=== PATIENT | female | born 1955 | race Caucasian/White ===

== ENCOUNTER → 2024-02-19 08:08 | Outpatient (CLI) | payer MEDICARE, OTHER, SELFPAY ==
[2024-02-19 09:00] LABS: Add Manual Diff / Slide Review NO; Basophils Absolute Auto 100 /uL (0-100); Basophils Percent Auto 0.9 % (0-2); Eosinophils Absolute Auto 500 /uL (0-450); Eosinophils Percent Auto 6.4 % (2-4); Hematocrit 38.9 % (36-46); Hemoglobin 13.2 g/dL (12.0-16.0); Lymphocytes Absolute Auto 1600 /uL (1100-4500); Lymphocytes Percent Auto 21.4 % (25-40); Mean Corpuscular Hemoglobin 29.6 PG (26-34); Mean Corpuscular Volume 87.1 fL (80-100); Monocytes Absolute Auto 500 /uL (0-900); Monocytes Percent Auto 6.1 % (3-14); Neutrophils Absolute Auto 4800 /uL (1500-7000); Neutrophils Percent Auto 65.2 % (50-75); Platelet Count 284 X10^3/uL (150-400); Red Blood Cell Count 4.47 X10^6/uL (4.0-5.2); Red Cell Distribution Width 13.2 % (11.6-14.8); White Blood Cell Count 7.4 X10^3/uL (4.5-11.0)
[2024-02-19 09:27] LABS: Hemoglobin A1C% w Est Avg Glu 5.7 % (4.0-6.0)
[2024-02-19 09:37] LABS: Alanine Aminotransferase 43 IU/L (<35); Albumin 4.4 g/dL (3.5-5.0); Albumin Globulin Ratio 1.6 (1.0-2.8); Alkaline Phosphatase 66 U/L (38-126); Aspartate Aminotransferase 36 IU/L (14-36); BUN Creatinine Ratio 27.9 (6-22); Bilirubin Total 0.8 mg/dL (0.2-1.3); Blood Urea Nitrogen 19 mg/dL (7-17); Calcium 9.1 mg/dL (8.4-10.2); Carbon Dioxide 29 mmol/L (22-32); Chloride 105 mmol/L (98-107); Cholesterol 199 mg/dL (140-199); Estimated Glomerular Filt Rate > 60 mL/min (>60); Globulin 2.7 g/dL (1.7-4.1); Glucose 124 mg/dL (80-110); HDL Cholesterol 65 mg/dL (40-60); HEMOLYSIS < 15 (0-50); LDL Cholesterol Calculated 115 mg/dL (<100); Potassium 4.6 mmol/L (3.4-5.1); Sodium 140 mmol/L (137-145); Total Protein 7.1 g/dL (6.3-8.2); Triglycerides 94 mg/dL (35-150)
== END ==
PROVIDERS: PCP Family Medicine; Referring Provider Family Medicine; Visit Provider Family Medicine
DX: Z13.220 Encounter for screening for lipoid disorders (principal); I10 Essential (primary) hypertension; R73.03 Prediabetes
CPT/HCPCS: 36415; 80053; 80061; 83036; 85025

== ENCOUNTER → 2024-03-05 15:02 | Outpatient (CLI) | payer MEDICARE, SELFPAY ==
--- NOTE | 2024-03-05 15:04 | DI.MG.S_ITS ---
BILATERAL DIGITAL SCREENING MAMMOGRAM 3D/2D WITH CAD: 03/05/2024 CLINICAL: Routine screening. Family history of breast cancer. No prior exams were available for comparison. There are scattered areas of fibroglandular density in both breasts (category b / 25%-50% glandular tissue). Current study was also evaluated with a Computer Aided Detection (CAD) system. No significant masses, calcifications, or other findings are seen in either breast. IMPRESSION: NEGATIVE There is no mammographic evidence of malignancy. A 1 year screening mammogram is recommended. Based on the Tyrer Cuzick model (a risk assessment model) the patient's lifetime risk is 12.0% and her 10 year risk is 6.4%. According to the ACR, ACS, and NCCN guidelines, an annual breast MRI exam along with mammogram is recommended if the patient's lifetime risk is 20% or greater. This exam was interpreted at Station ID: [id number]. NOTE: For mammograms, a report in lay terms will be sent to the patient. Approximately 15% of breast malignancies will not be visualized mammographically. In the management of a palpable breast mass, a negative mammogram must not discourage biopsy of a clinically suspicious lesion. Electronically Signed By: Clover Vergara M.D., Ph.D. willie/austin:03/09/2024 15:46:44 letter sent: Normal Exam ACR BI-RADS Category 1: Negative [id number]
--- NOTE | 2024-03-05 15:04 | DI.RAD.S_ITS ---
PROCEDURE: XR DEXA AXIAL SKELETON INDICATIONS: OSTEOPOROSIS SCREENING/ROUTINE SCREENING COMPARISON: None. FINDINGS: Lumbar Spine: Bone mineral density 1.198 g/cm2, T score 1.6. Left Hip: Bone mineral density 1.088 g/cm2, T score 1.2. Left Femoral Neck: Bone mineral density 0.925 g/cm2, T score 0.7. Right Hip: Bone mineral density 1.02 g/cm2, T score 0.6. Right Femoral Neck: Bone mineral density 0.902 g/cm2, T score 0.5. Fracture Risk Calculation (when applicable): 10-year fracture risk of a major osteoporotic fracture 6.3% and of a hip fracture 0.2%. (T score greater or equal to -1.0 to: NORMAL) (T score from -1.1 to -2.4: OSTEOPENIA) (T score less than or equal to -2.5: OSTEOPOROSIS) IMPRESSION: Normal bone mineral density Follow-up guidelines as follows: Osteoporosis: Consider a repeat DEXA and Vertebral Fracture Assessment (VFA) exam in 2 years or sooner if medically necessary, to reassess this patient's status. Osteopenia: Consider a repeat DEXA in 2-3 years to reassess this patient's status, or if there is a new clinical indication. Normal: Consider a repeat DEXA in 5 years or sooner, or if there is a new clinical indication. All treatment decisions require clinical judgment and consideration of individual patient factors, including patient preferences, comorbidities, previous drug use, risk factors not captured in the FRAX model (e.g., frailty, falls, vitamin D deficiency, increased bone turnover, interval significant decline in bone density ) and possible under- or over-estimation of fracture risk by FRAX. In addition, the NOF Guide recommends that FDA-approved medical therapies be considered in postmenopausal women and men age >= 50 years with a: * Hip or vertebral (clinical or morphometric) fracture * T-score of <=-2.5 at the spine or hip * Ten-year fracture probability by FRAX of >= 3% for hip fracture or >=20% for major osteoporotic fracture. People with diagnosed cases of osteoporosis or at high risk for fracture should have regular bone mineral density tests. For patients eligible for Medicare, routine testing is allowed once every 2 years. The testing frequency can be increased to one year for patients who have rapidly progressing disease, those who are receiving or discontinuing medical therapy to restore bone mass, or have additional risk factors. Dictated by: Carlos Enrique Lang M.D. on 03/05/2024 at 17:44 Approved by: Carlos Enrique Lang M.D. on 03/05/2024 at 17:46
== END ==
PROVIDERS: PCP Family Medicine; Referring Provider Family Medicine; Visit Provider Family Medicine
DX: Z80.3 Family history of malignant neoplasm of breast (principal); Z12.31 Encounter for screening mammogram for malignant neoplasm of breast; R92.323 Mammographic fibroglandular density, bilateral breasts; Z78.0 Asymptomatic menopausal state
CPT/HCPCS: 77063; 77067; 77080

== ENCOUNTER 2024-10-06 21:51 | Emergency (ER) | payer MEDICARE, SELFPAY ==
[2024-10-06 21:55] VITALS: BP 136/83; PULSE 80; RESP 16; TEMP 37.1; O2SAT 97; BMI 27.5
[2024-10-06] MEDS: TET,DIPH,PERTUSS(ACELL),VAC/PF 0.5 ML SYRINGE IM (22:51)
--- NOTE | 2024-10-06 23:08 | PC.NURSE ---
pt states she has tightness on top of hand, warm to touch
--- NOTE | 2024-10-06 23:30 | ED.ANIMALBIT ---
HPI - Animal Bite General Chief Complaint: Animal Bite Stated Complaint: cat bite to rt hand, swelling Time Seen by Provider: 10/06/24 23:30 Source: patient, RN notes reviewed and old records reviewed Mode of arrival: Ambulatory Limitations: no limitations History of Present Illness HPI narrative: 68-year-old female history of hypertension who presents with complaint of cat bite earlier today during the morning. Patient states 1 tooth in backside of her hand maybe additional adjacent to the knuckle. She has had some increased swelling and redness and discomfort since then. She did wash the area has use some warm compresses notes the skin is tight and a little bit warm to touch. It was her own cat it was in good health immunizations are up-to-date for CT. She is unsure if hers are up-to-date. She states she takes blood pressure medication but no other daily medications. Only reported allergies to nitrous oxide. Denies any numbness tingling or weakness. Does have full range of motion. Related Data Home Medications Medication Instructions Recorded Confirmed losartan 25 mg tablet 25 mg PO DAILY 10/17/23 04/06/24 Previous Rx's Medication Instructions Recorded amoxicillin 875 mg-potassium 1 tab PO BID #18 tabs 10/06/24 clavulanate 125 mg tablet Allergies Allergy/AdvReac Type Severity Reaction Status Date / Time nitrous oxide Allergy Mild Blurry Verified 04/06/24 08:49 Vision Review of Systems Review of Systems ROS Unobtainable: All systems reviewed & are unremarkable except as noted in HPI and below Patient History Social History Smoking Status: Never smoker Smoking Status: Never smoker Exam Narrative Exam Narrative: GENERAL: Alert and oriented x three, female in mild distress HEENT: Head normocephalic, atraumatic, EOMI, pupils reactive, face symmetric, moist mucous membranes NECK: Supple, full range of motion CARDIOVASCULAR: Regular rate and rhythm without murmurs, rubs or gallops. RESPIRATORY: Breath sounds equal bilaterally, no wheezes rales or rhonchi. ABDOMEN: Soft, nontender. Normoactive bowel sounds all 4 quadrants. No guarding or rebound, rigidity, no mass EXTREMITIES: Normal range of motion, no clubbing. Patient has edema, erythema and swelling on the dorsum of her right hand approximately 3 x 3 cm there is a puncture wound adjacent to the 3rd proximal joint. Patient is mildly tender to touch. There was no fluctuance. It is slightly indurated. Patient has full range of motion with no involvement of the fingers or wrist. Patient was marked with a marking pen. Neurovascularly intact. Cap refill less than 2 seconds in all 5 fingers. 2+ radial pulse. NEUROLOGICAL: Cranial nerves II through XII grossly intact. Moving all extremities SKIN: Warm, dry, no petechiae, no rashes or lesions other than noted above. Initial Vital Signs Initial Vital Signs: Vital Signs Temperature 98.7 F 10/06/24 21:55 Pulse Rate 80 10/06/24 21:55 Respiratory Rate 16 10/06/24 21:55 Blood Pressure 136/83 10/06/24 21:55 Pulse Oximetry 97 10/06/24 21:55 Oxygen Delivery Method Room Air 10/06/24 21:55 Course Orders Ordered: Discontinued Medications Amoxicillin/Clavulanate Potassium (Amoxicillin/Clav 875/125 Mg) 1 tab PO NOW ONE Stop: 10/06/24 23:37 Last Admin: 10/06/24 23:40 Dose: 1 tab Documented By: AB Amoxicillin/Clavulanate Potassium (Amoxicillin/Clav 875/125 Mg) 1 tab PO NOW ONE Stop: 10/06/24 23:37 Last Admin: 10/06/24 23:40 Dose: 1 tab Documented By: AB Diphtheria/Tetanus/Acell Pertussis (Tet,Diph,Pertuss(Acell),Vac/Pf 0.5 Ml Syringe) 0.5 ml IM .ONCE ONE Stop: 10/06/24 22:48 Last Admin: 10/06/24 22:51 Dose: 0.5 ml Documented By: AB Vital Signs Vital signs: Vital Signs - 8 hr 10/06/24 21:55 10/06/24 23:47 Temperature 98.7 F Pulse Rate 80 81 Respiratory Rate 16 16 Blood Pressure 136/83 156/78 H Pulse Oximetry 97 97 Oxygen Delivery Method Room Air Room Air MDM - Animal Bite MDM Narrative Medical decision making narrative: 68-year-old female with cat bite to her hand catheterization immunized patient tetanus was updated. She appears to be developing a little bit of cellulitis so was started on Augmentin. She is planning to travel tomorrow so we will give an additional dose for the morning as well as provide a written prescription as she may not be able to obtain it from the local pharmacy before she begins to travel. Strict return precautions patient was marked here in the department. Discharge Plan Departure Patient Disposition: Home Clinical Impression: Cat bite of right hand with infection Qualifiers: Encounter type: initial encounter Qualified Code(s): S61.451A - Open bite of right hand, initial encounter Instructions: DI for Cat Bite Activity Restrictions/Additional Instructions: Take antibiotics until completed. Take your next dose of antibiotic in the morning. Printed prescription is included in your paperwork. Your tetanus was updated today. You can take acetaminophen and/or ibuprofen as needed for pain. You have an area of cellulitis or infection on the back of your hand, if this is increasing in size, if you are having any increasing redness, swelling, if the redness is moving up your arm, if you are having increasing pain, fevers, difficulty flexing or moving your hand you need to return to the emergency department. Prescriptions: New amoxicillin-pot clavulanate 875-125 mg tablet 1 tab PO BID Qty: 18 0RF No Action losartan 25 mg tablet 25 mg PO DAILY Referrals: Sabrina Hernadez DO [Primary Care Provider] - Stand Alone Forms: Patient Portal/API/Survey
[2024-10-06] MEDS: AMOXICILLIN/CLAV 875/125 MG 1 TAB PO ×2 (23:40)
[2024-10-06 23:47] VITALS: BP 156/78; PULSE 81; RESP 16; O2SAT 97
== END 2024-10-06 23:47 | disposition home or self-care (01) ==
PROVIDERS: Emergency Provider Emergency Medicine; PCP Family Medicine
DX: S61.451A Open bite of right hand, initial encounter (principal); W55.01XA Bitten by cat, initial encounter; Z23 Encounter for immunization
CPT/HCPCS: 90471; 99283; 90715

== ENCOUNTER → 2025-08-23 08:31 | Outpatient (CLI) | payer MEDICARE, SELFPAY ==
[2025-08-23 08:51] LABS: Add Manual Diff / Slide Review NO; Hematocrit 42.8 % (36-46); Hemoglobin 14.3 g/dL (12.0-16.0); Lymphocytes Absolute Auto 1200 /uL (1100-4500); Mean Corpuscular HGB Conc 33.4 % (30-36); Mean Corpuscular Hemoglobin 29.5 PG (26-34); Mean Corpuscular Volume 88.5 fL (80-100); Platelet Count 260 X10^3/uL (150-400)
[2025-08-23 08:59] LABS: Hemoglobin A1C% w Est Avg Glu 5.7 % (4.0-6.0)
[2025-08-23 10:13] LABS: Alanine Aminotransferase 29 IU/L (<35); Albumin 4.4 g/dL (3.5-5.0); Albumin Globulin Ratio 1.5 (1.0-2.8); Alkaline Phosphatase 64 U/L (38-126); Blood Urea Nitrogen 15 mg/dL (7-17); Calcium 9.3 mg/dL (8.4-10.2); Carbon Dioxide 29 mmol/L (22-32); Chloride 105 mmol/L (98-107); Cholesterol 204 mg/dL (140-199); Estimated Glomerular Filt Rate > 60 mL/min (>60); Globulin 2.9 g/dL (1.7-4.1); Glucose 123 mg/dL (70-99); HDL Cholesterol 80 mg/dL (40-60); HEMOLYSIS < 15 (0-50); Potassium 4.4 mmol/L (3.4-5.1); Sodium 140 mmol/L (137-145); Total Protein 7.3 g/dL (6.3-8.2); Triglycerides 105 mg/dL (35-150)
== END ==
PROVIDERS: PCP Family Medicine; Referring Provider Family Medicine; Visit Provider Family Medicine
DX: Z00.00 Encounter for general adult medical examination without abnormal findings (principal); I10 Essential (primary) hypertension; R73.03 Prediabetes; E78.5 Hyperlipidemia, unspecified
CPT/HCPCS: 36415; 80053; 80061; 83036; 85025